=== PATIENT | female | born 1945 | race Caucasian/White ===

== ENCOUNTER 2024-02-21 12:51 | Emergency (ER) | payer MEDICARE, SELFPAY ==
--- NOTE | ~2024-02-21 | XR_ITS ---
EXAMINATION: XR pelvis 1-2V DATE: 02/21/2024 14:05 INDICATION: Pelvic pain. Fall. TECHNIQUE: 2 views of the pelvis were obtained. COMPARISON: None. 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 No fracture. There is severe righ t hip osteoarthritis and moderate left hip osteoarthritis. IMPRESSION: 1. Severe right hip osteoarthritis and moderate left hip osteoarthritis. Reviewed, dictated and finalized at location A.
--- NOTE | ~2024-02-21 | XR_ITS ---
XR knee RT min 4V 02/21/2024 14:05 Indication: Right knee pain Procedure: 4 views right knee Comparison: No prior studies for comparison. Findings: There is moderate tricompartment osteoarthritis. No fracture, subluxation or dislocation. O steopenia. Small joint effusion. Impression: 1: No acute fracture. Reviewed, dictated and finalized at location B. Impression: 1: No acute fracture.
[2024-02-21 13:07] VITALS: BP 143/80; PULSE 84; RESP 16; TEMP 37.3; O2SAT 98
--- NOTE | 2024-02-21 13:55 | ED.LOWEXIN ---
HPI - Extremity Injury (Lower) General Chief Complaint: Extremity Injury, Lower Stated Complaint: fall Time Seen by Provider: 02/21/24 13:35 Source: patient, family and RN notes reviewed Mode of arrival: ambulatory (With walker) Limitations: no limitations History of Present Illness HPI Narrative: Patient presents today complaining of pain to her right knee and posterior hip. She fell onto her right side yesterday while getting into a car after losing her balance. States she believes her kneecap dislocated and then reduced itself a few hours later. Reports significant swelling of the right knee that has improved since yesterday. Denies numbness or tingling in the leg or foot. Currently rates her pain 10/22 and has been taking Tylenol with some relief. Denies head injury or loss of consciousness. Related Data Home Medications Medication Instructions Recorded Confirmed famotidine 20 mg tablet mg 02/21/24 gabapentin 300 mg capsule mg 02/21/24 glipizide 5 mg tablet mg 02/21/24 levofloxacin 500 mg tablet mg 02/21/24 levothyroxine 100 mcg tablet mcg 02/21/24 liothyronine 5 mcg tablet mcg 02/21/24 lisinopril 2.5 mg tablet mg 02/21/24 pantoprazole 40 mg tablet,delayed mg PO 02/21/24 release tramadol 50 mg tablet 50 mg PO Q6H PRN Pain (Scale Score 02/21/24 02/21/24 7-10) Allergies Allergy/AdvReac Type Severity Reaction Status Date / Time No Known Allergies Allergy Verified 02/21/24 13:24 Review of Systems Review of Systems: CONSTITUTIONAL: Denies body aches, fever, chills, or sweats. EYES: Denies visual changes, redness, or discharge. ENT: Denies rhinorrhea, congestion, sore throat, or otalgia. CARDIOVASCULAR: Denies chest pain, palpitations, or edema. RESPIRATORY: Denies cough or dyspnea. GASTROINTESTINAL: Denies abdominal pain, nausea, vomiting, or diarrhea. GENITOURINARY: Denies dysuria or hematuria. SKIN: Denies rash, itching, or wounds. MUSCULOSKELETAL: Denies back pain. + right knee and hip pain NEUROLOGIC: Denies headache, numbness, tingling, or weakness. PSYCH: Denies depression or anxiety. [facility] Past Medical History Medical History (Updated 02/21/24 @ 14:22 by Lizbeth John, OPERATING ROOM NURSE, ) Diabetes Hypertension Osteoporosis Peripheral neuropathy Comments At time of signature, I have reviewed and agree with nursing past medical, surgical, social and family history unless otherwise noted. Please see nursing chart for further information. There is no relevant family history pertinent to the presenting complaint Exam Narrative: GENERAL: Well-appearing, well-nourished, and in no acute distress. HEAD: Normocephalic, atraumatic. EYES: EOMI. No redness or drainage. Conjunctivae normal. ENT: Mucous membranes pink and moist. NECK: Normal AROM. CHEST: No respiratory distress. EXTREMITIES: Right leg: Tenderness to the right posterior hip. No tenderness laterally or anteriorly. Range of motion of the hip with increased pain posteriorly. Right knee: Moderate swelling anteriorly with tenderness medially. No tenderness posteriorly. No bony tenderness of the patella. No abnormal movement of the patella. Pain with P ROM in all directions. Distal sensation intact. Capillary refill normal. SKIN: Warm, dry, no rash. Capillary refill normal. Normal skin turgor. NEURO: No focal deficits. Alert and oriented x3. Gait steady with walker. PSYCH: Normal affect. No signs of depression or anxiety. Course Course Level of Care: Express Care Visit Vital Signs Vital signs: Vital Signs Temperature 99.2 F 02/21/24 13:07 Pulse Rate 84 02/21/24 13:07 Respiratory Rate 16 02/21/24 13:07 Blood Pressure 143/80 H 02/21/24 13:07 Pulse Oximetry 98 02/21/24 13:07 Oxygen Delivery Room Air 02/21/24 13:07 Temperature 99.2 F 02/21/24 13:07 Pulse Rate 84 02/21/24 13:07 Respiratory Rate 16 02/21/24 13:07 Blood Pressure 143/80 H 02/21/24 13:07 Pulse Oximetry 98
== END 2024-02-21 14:32 | disposition home or self-care (01) ==
PROVIDERS: Emergency Provider Nurse Practitioner
DX: M25.551 Pain in right hip (principal); S89.91XA Unspecified injury of right lower leg, initial encounter; W19.XXXA Unspecified fall, initial encounter; M16.0 Bilateral primary osteoarthritis of hip; E11.42 Type 2 diabetes mellitus with diabetic polyneuropathy; I10 Essential (primary) hypertension; M81.0 Age-related osteoporosis without current pathological fracture
CPT/HCPCS: 72170; 73564; 99214; G0463